=== PATIENT | female | born 1930 | race African-American/Black ===

== ENCOUNTER → 2019-04-04 | Outpatient (CLI) | payer MEDICARE, OTHER | END | disposition home or self-care (01) | LOC: PCVCCLINIC 15:00 | PROVIDERS: ATTEND Internal Medicine | DX: I10 Essential (primary) hypertension (principal); I63.9 Cerebral infarction, unspecified; R55 Syncope and collapse; I49.5 Sick sinus syndrome; E78.00 Pure hypercholesterolemia, unspecified; E11.9 Type 2 diabetes mellitus without complications; Z88.0 Allergy status to penicillin; Z88.2 Allergy status to sulfonamides; Z88.6 Allergy status to analgesic agent; Z88.8 Allergy status to other drugs, medicaments and biological substances | CPT/HCPCS: 93280; G0463 ==